=== PATIENT | male | born 1985 | race African-American/Black ===

== ENCOUNTER → 2019-07-18 10:24 | Day surgery (SDC) | payer OTHER ==
[~2019-07-18 10:24] MED LIST: Acetaminophen IV 1GM/100ML * 1,000 MG/100 ML VIAL IVPB ONE; Buffered Lidocaine 1% SYRIN* 1 ML/SYRINGE INTRADERM ONE; Bupivacaine 0.25% SDV* 30 ML ONE; Ketorolac INJ* 30 MG/ML 1 ML VIAL ONE; Lactated Ringers 1000 ML Bag* 1,000 ML IV SCH; Lidocaine 2% PF * 5 ML VIAL ONE; Midazolam* 1 MG/ML 2 ML VIAL (2 MG) ONE; Naloxone* 0.4 MG/ML 1 ML VIAL IV PRN; Ondansetron INJ* 2 MG/ML VIAL IV PRN; Propofol* 10 MG/ML 20 ML BTL ONE; Sodium Citrate/Citric Acid* 15 ML UDC ONE; Sodium Citrate/Citric Acid* 15 ML UDC PO ONE; ceFAZolin 2 GM PREMIX in ORs 2 GM/50 ML BAG ONE; fentaNYL* 50 MCG/ML 2 ML VIAL (100 MCG VIAL) IV PRN; fentaNYL* 50 MCG/ML 2 ML VIAL (100 MCG VIAL) ONE
[2019-07-18 15:09] VITALS: BP 139/81
--- NOTE | 2019-07-18 22:39 | OP ---
DATE OF OPERATION: 07/18/19 - SDS DATE OF : 87 SURGEON: Antoine Ribeiro MD MANUFACTURING SHIFT SUPERVISOR: TRISTIAN Frey. An medical technician assistant was needed for the procedure to aid in positioning of the arm and retraction. ANESTHESIOLOGIST: Dr. Johnston. ANESTHESIA: General. PRE-OP DIAGNOSES: 1. Right small finger skin contracture, status post multiple prior surgeries. 2. 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 POST-OP DIAGNOSES: 1. Right small finger skin contracture, status post multiple prior surgeries. 2. 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 3. Right hand extrinsic flexor tendon tightness. OPERATIVE PROCEDURE: 1. Right small finger distal interphalangeal joint fusion with micro Acutrak screw. 2. Z-plasty measuring a total of 2.5 cm in the right small finger with Z- plasties over the DIP, PIP, and MCP joint flexion creases. INDICATIONS: Mr. Abbasi has had multiple prior surgeries on this finger including a capsulotomy and joint releases. He has a rigid flexion contracture of the distal interphalangeal joint. I talked to him about treatment options and he wanted to proceed with surgical correction. He understands he is going to need multiple Z- plasties and potentially a full thickness skin graft to adjust the tight band of skin that he has proximally. He does wish to proceed. We talked at length about risks including of recurrence of contracture of neurovascular injury, wound problems, failure to use the finger. He understands the risk of neurovascular injury as well given the extensive scar tissue on the palmar side of the finger. He understands all these and he wants to proceed. ESTIMATED BLOOD LOSS: 2 mL. COMPLICATIONS: None. FINDINGS: See above and below. Again noted was a bit of extrinsic tightness. DESCRIPTION OF PROCEDURE: Mr. Abbasi was seen in the preoperative holding area. The correct site, side, and procedures were identified. We came back to the operating room. The arm was prepped and draped in the usual fashion and a time-out was performed. I then performed a digital block with 0.25% plain Marcaine. I then made a longitudinal incision down the mid palmar aspect of the small finger right over that tight skin band. After I had raised full thickness flaps radially and ulnarly the dermis from the underlying skin and staying right on the dermis to protect the neurovascular bundles, I then went ahead and made a transverse incision which converted into a H-shaped incision over the dorsum of the DIP joint. The terminal extensor tendon was released. The collateral ligaments were released. The volar plate was released off the middle phalanx neck. I was unable to get the joint out of the contracture that was in; however, extrinsic tightness was noted with the Volkmann's angle of 40 degrees of extension, at that time the PIP joint was started to flex. I went ahead and prepared the distal interphalangeal joint by excising the subchondral bone with a rongeur. I then in antegrade fashion drilled the guidewire for the micro Acutrak screw at the end of the distal phalanx. I then reduced joint of the position I wanted and advanced the wire down to the subchondral bone of the middle phalanx proximally. I then drilled and selected the longus micro Acutrak screw which was a 20 mm. This was placed and there was excellent compression and good apposition of the bone. Alignment was very nice, it was sitting at about 10 degrees of flexion. After the DIP joint fusion was done, I turned my attention to the palmar's side. There was definitely some extrinsic flexor tendon tightness, but there was not much I could do about that. I went ahead and first made about a little less than 1 cm Z-plasty at 60 degree angle over the distal interphalangeal joint. The flaps were rotated and sewn into place. I then did very similar type Z-plasty over the PIP joint and then again over the MCP joint. This provided good correction and lengthening to restore the length of the skin and eliminate the skin contracture. After all three Z-plasties were completed and sewn in; I closed the dorsal wound with 4-0 nylon suture. Wounds have been irrigated out. The wounds were dressed with Xeroform, 4x4s, sterile Webril and then a ulnar gutter splint with the MCP joint in gentle flexion and the PIP joint and DIP joint straight was applied. He was taken to the recovery room in stable condition. The tourniquet was deflated and the small finger did pink up. [id number]/[facility] #: [id number] [facility] CENTERDorothy
== END ==
LOC: OR 10:24
PROVIDERS: ATTEND Orthopaedic Surgery Hand Surgery
DX: M24.541 Contracture, right hand (principal); L90.5 Scar conditions and fibrosis of skin; F41.8 Other specified anxiety disorders; M19.90 Unspecified osteoarthritis, unspecified site; F17.210 Nicotine dependence, cigarettes, uncomplicated
CPT/HCPCS: 76000; A9270-GY; C1713; C1776; J0690; J1885; J2250; J2704; J3010; J3490